=== PATIENT | male | born 1990 | race Caucasian/White ===

== ENCOUNTER 2016-09-13 14:13 | Emergency (ER) | payer OTHER | END 2016-09-13 15:35 | disposition home or self-care (01) | LOC: D.ER 14:13 | DX: T23.101A Burn of first degree of right hand, unspecified site, initial encounter (principal); X12.XXXA Contact with other hot fluids, initial encounter; Y93.89 Activity, other specified; Y92.019 Unspecified place in single-family (private) house as the place of occurrence of the external cause; F17.200 Nicotine dependence, unspecified, uncomplicated ==

== ENCOUNTER 2018-03-07 13:51 | Emergency (ER) | payer OTHER ==
[~2018-03-07] VITALS: Ht 188 cm; Wt 159.1 kg
[2018-03-07 14:05] VITALS: Ht 188 cm; Wt 159.1 kg
[2018-03-07 16:36] VITALS: BP 125/81
== END 2018-03-07 15:40 | disposition home or self-care (01) ==
LOC: D.ER 13:51
DX: S91.012A Laceration without foreign body, left ankle, initial encounter (principal); W26.8XXA Contact with other sharp object(s), not elsewhere classified, initial encounter; Y93.89 Activity, other specified; Y92.019 Unspecified place in single-family (private) house as the place of occurrence of the external cause

== ENCOUNTER 2018-10-31 18:12 | Emergency (ER) | payer SELFPAY ==
[~2018-10-31] VITALS: Ht 188 cm; Wt 159.1 kg
[2018-10-31 18:18] VITALS: Ht 188 cm; Wt 159.1 kg
[2018-10-31 18:46] LABS: BASOPHILS 0.4 % (0-2); EOSINOPHILS 4.2 % (0-7); HEMATOCRIT 40.8 % (42.0-54.0); HEMOGLOBIN 14.4 g/dL (13.5-17.5); IMMATURE GRANULOCYTES 0.2 % (0-5); LYMPHOCYTES 25.1 % (15-50); MCH 29.4 pg (26.0-34.0); MCHC 35.3 g/dL (31.0-37.0); MCV 83.3 fL (80.0-100.0); MEAN PLATELET VOLUME 10.6 fL (7.4-10.4); MONOCYTES 6.4 % (2-11); NEUTROPHILS 63.7 % (40-80); PLATELET COUNT 238 10x3/uL (130-400); RDW 12.7 % (11.5-14.5); WBC 8.3 10x3/uL (4.8-10.8)
[2018-10-31 19:00] LABS: APTT 28.1 SECONDS (22.8-39.4); INR 0.96 (0.85-1.17); PROTIME 12.3 SECONDS (11.6-15.0)
[2018-10-31 19:04] LABS: ALBUMIN 3.2 g/dL (3.4-5.0); ALKALINE PHOSPHATASE 75 U/L (46-116); ALT (SGPT) 35 U/L (10-68); BILIRUBIN - TOTAL 0.27 mg/dL (0.2-1.3); CALC OSMOLALITY 277 mosm/kg (275-300); CARBON DIOXIDE 23.2 mmol/L (21.0-32.0); CHLORIDE - SERUM 106 mmol/L (98-107); CREATININE - SERUM 0.9 mg/dL (0.6-1.3); GLUCOSE 100 mg/dL (74-106); PROTEIN - SERUM 7.2 g/dL (6.4-8.2); SODIUM 140 mmol/L (136-145); UREA NITROGEN 10 mg/dL (7-18); eGFR NON AFRICAN AMERICAN > 90 mL/min (90-120)
[2018-10-31 19:16] LABS: CKMB 0.5 U/L (0.0-3.6); CREATINE KINASE 140 UL (21-232); PRO BNP 14 pg/mL (0-125)
[2018-10-31 19:17] LABS: TROPONIN-I < 0.017 ng/mL (0.000-0.060)
[2018-10-31] MEDS ORDERED: BACLOFEN20 M1 PO (20:52)
[2018-10-31] MEDS ORDERED: VOLTAREN75 MG PO (20:52)
[2018-10-31 21:57] VITALS: BP 117/48
== END 2018-10-31 21:57 | disposition home or self-care (01) ==
LOC: D.ER 18:12
PROVIDERS: Family Medicine
DX: M94.0 Chondrocostal junction syndrome [Tietze] (principal)

== ENCOUNTER 2018-11-05 16:20 | Emergency (ER) | payer SELFPAY ==
[2018-10-31 18:18] VITALS: BMI 45.0
[~2018-11-05 16:20] MED LIST: BACLOFEN20 M1 PO; VOLTAREN75 MG PO
== END 2018-11-05 18:05 | disposition left against medical advice (07) ==
LOC: D.ER 16:20
DX: R07.9 Chest pain, unspecified (principal)

== ENCOUNTER 2019-06-26 11:05 | Emergency (ER) | payer SELFPAY ==
[~2019-06-26] VITALS: Ht 188 cm; Wt 152.3 kg
[2019-06-26 11:16] VITALS: Ht 188 cm; Wt 152.3 kg
[2019-06-26 11:54] LABS: BASOPHILS 0.3 % (0-2); EOSINOPHILS 2.3 % (0-7); IMMATURE GRANULOCYTES 0.1 % (0-5); LYMPHOCYTES 28.1 % (15-50); MCH 30.1 pg (26.0-34.0); MCHC 34.1 g/dL (31.0-37.0); MCV 88.4 fL (80.0-100.0); MEAN PLATELET VOLUME 10.7 fL (7.4-10.4); MONOCYTES 7.5 % (2-11); NEUTROPHILS 61.7 % (40-80); PLATELET COUNT 258 10x3/uL (130-400); RBC 4.98 10x6/uL (4.20-6.10); WBC 8.8 10x3/uL (4.8-10.8)
[2019-06-26 11:54] LABS: APPEARANCE CLEAR (CLEAR); BILIRUBIN NEGATIVE (NEGATIVE); COLOR YELLOW (YELLOW); GLUCOSE NEGATIVE (NEGATIVE); KETONE NEGATIVE (NEGATIVE); NITRITE NEGATIVE (NEGATIVE); PROTEIN NEGATIVE (NEGATIVE); UROBILINOGEN NORMAL (NORMAL)
[2019-06-26 12:04] LABS: CALC OSMOLALITY 277 mosm/kg (275-300); CALCIUM 8.8 mg/dL (8.5-10.1); CARBON DIOXIDE 27.6 mmol/L (21.0-32.0); CHLORIDE - SERUM 105 mmol/L (98-107); CREATININE - SERUM 0.8 mg/dL (0.6-1.3); GLUCOSE 94 mg/dL (74-106); POTASSIUM - SERUM 4.6 mmol/L (3.5-5.1); SODIUM 140 mmol/L (136-145); UREA NITROGEN 9 mg/dL (7-18); eGFR NON AFRICAN AMERICAN > 90 mL/min (90-120)
[2019-06-26 12:10] LABS: ALBUMIN 3.7 g/dL (3.4-5.0); ALKALINE PHOSPHATASE 77 U/L (46-116); ALT (SGPT) 55 U/L (10-68); AMYLASE - SERUM 45 U/L (25-115); BILIRUBIN - TOTAL 0.29 mg/dL (0.2-1.3); LIPASE 127 U/L (73-393)
[2019-06-26] MEDS ORDERED: FLORASTOR250 MG PO (14:13)
[2019-06-26 14:35] VITALS: BP 136/84
== END 2019-06-26 14:36 | disposition home or self-care (01) ==
LOC: D.ER 11:05
PROVIDERS: Family Medicine
DX: R10.9 Unspecified abdominal pain (principal); R19.7 Diarrhea, unspecified

== ENCOUNTER 2021-02-17 10:13 | Emergency (ER) | payer OTHER ==
[~2021-02-17] VITALS: Ht 188 cm; Wt 150.0 kg
[~2021-02-17 10:13] MED LIST changes: +FLORASTOR250 MG PO
[2021-02-17 10:22] VITALS: Ht 188 cm; Wt 150.0 kg
[2021-02-17] MEDS ORDERED: NAPROSYN500 MG PO (11:48)
[2021-02-17 12:21] VITALS: BP 120/75
== END 2021-02-17 12:22 | disposition home or self-care (01) ==
LOC: D.ER 10:13
DX: M72.2 Plantar fascial fibromatosis (principal); M77.8 Other enthesopathies, not elsewhere classified; M79.672 Pain in left foot